=== PATIENT | male | born 1995 | race Caucasian/White ===

== ENCOUNTER → 2021-01-13 | Outpatient (CLI) | payer BC | END | disposition home or self-care (01) | LOC: CFH 13:28 | PROVIDERS: ATTEND Physician Assistant | DX: N62 Hypertrophy of breast (principal); N63.42 Unspecified lump in left breast, subareolar; R22.2 Localized swelling, mass and lump, trunk | CPT/HCPCS: 76642; 77062; 77066; G0279 ==